=== PATIENT | male | born 1970 | race Two or more races ===

== ENCOUNTER 2024-10-27 14:58 | Emergency (ER) | payer OTHER ==
[~2024-10-27] VITALS: Ht 177.8 cm; Wt 83.0 kg
[2024-10-27] MEDS ORDERED: AMLODIPINE (15:57)
[2024-10-27] MEDS ORDERED: LOSARTAN POTASS25 MG (15:57)
[2024-10-27 15:58] VITALS: BP 137/85; O2SAT 96
[2024-10-27] MEDS ORDERED: FAMOTIDINE/PF 20 MG/2 ML VIAL IV ONE (18:15)
[2024-10-27] MEDS ORDERED: 0.9 % SODIUM CHLORIDE 500 ML IV ONE (18:15)
[2024-10-27] MEDS ORDERED: FAMOTIDINE/PF 20 MG/2 ML VIAL ONE (18:52)
[2024-10-27 19:25] LABS: BASO % 0.3 % (0.1-1.2); EOS # 0.07 (0.04-0.54); HEMATOCRIT 47.1 % (40.1-51.0); LYMPH # 2.39 (1.18-3.74); LYMPH % 34.2 % (19.3-53.1); MEAN CORPUSCULAR HEMOGLOBIN 29.4 pg (25.6-32.2); NEUT # 3.79 (1.56-6.13); NEUT % 54.2 % (34.0-71.1); PLATELET COUNT 252 K/uL (163-369); RED BLOOD COUNT 5.45 M/uL (4.63-6.08); RED CELL DISTRIBUTION WIDTH 12.9 % (11.6-14.4)
[2024-10-27 20:00] LABS: ALBUMIN 3.6 gm/dL (3.4-5.0); BILIRUBIN TOTAL 0.28 mg/dL (0.3-1.2); CALCIUM 8.9 mg/dL (8.5-10.1); CREATININE SERUM 0.91 mg/dL (0.70-1.30); GFR 87.15; GLOBULINA 3.3 G/DL (2.4-3.5); POTASSIUM 3.76 mEq/L (3.5-5.1); TOTAL PROTEIN 6.9 gm/dL (6.4-8.2)
[2024-10-27] MEDS ORDERED: MAG HYDROX/ALUMINUM HYD/SIMETH 30 ML BLIST.PACK PO ONE ×2 (21:00→21:03)
[2024-10-27] MEDS ORDERED: PEPCID AC20 MG PO (21:10)
[2024-10-27] MEDS ORDERED: CARAFATE1 GM PO (21:10)
== END 2024-10-27 22:36 | disposition home or self-care (01) ==
LOC: ER 14:58
PROVIDERS: Preventive Medicine Public Health & General Preventive Medicine
DX: K29.70 Gastritis, unspecified, without bleeding (principal); I10 Essential (primary) hypertension

== ENCOUNTER → 2025-04-20 | Emergency (ER) | payer OTHER ==
[~2025-04-20] VITALS: Ht 177.8 cm; Wt 82.6 kg
[~2025-04-20] MED LIST: AMLODIPINE; CARAFATE1 GM PO; DIPHENHYDRAMINE HCL 12.5 MG/5 ML BLIST.PACK PO ONE; DIPHENHYDRAMINE HCL 12.5 MG/5 ML BLIST.PACK PO STA; GUAIFENESIN 200 MG/10 ML BLIST.PACK PO ONE; GUAIFENESIN 200 MG/10 ML BLIST.PACK PO STA; KETO10TA2 PO; KETOROLAC TROMETHAMINE 10 MG TABLET PO ONE; KETOROLAC TROMETHAMINE 10 MG TABLET PO STA; LOSARTAN POTASS25 MG; NORFLEX100MG PO; PEPCID AC20 MG PO; PROMETHAZINE-D473 M1 PO
== END | disposition home or self-care (01) ==
LOC: ER 21:13
DX: R05.8 Other specified cough (principal); I10 Essential (primary) hypertension; M62.830 Muscle spasm of back